=== PATIENT | male | born 1970 | race Two or more races ===

== ENCOUNTER 2018-12-20 06:31 | Day surgery (SDC) | payer OTHER ==
[~2018-12-20 06:31] MED LIST: CLONAZEPAM0.5 MG; FOCALIN XR30 MG PO
[2018-12-20] MEDS ORDERED: ZOFRAN4 MG PO (10:18)
[2018-12-20] MEDS ORDERED: TYLENOL EXTRA500 MG PO (10:18)
[2018-12-20] MEDS ORDERED: ULTRAM50 MG PO (10:18)
[2018-12-20] MEDS ORDERED: MIRALAX17 GM PO (10:18)
[2018-12-20] MEDS ORDERED: NEURONTIN300 MG PO (10:18)
== END 2018-12-20 17:15 | disposition home or self-care (01) ==
LOC: CIR.AMB 06:31
DX: K42.0 Umbilical hernia with obstruction, without gangrene (principal)

== ENCOUNTER → 2020-11-30 | Outpatient (CLI) | payer OTHER ==
[~2020-11-30] MED LIST changes: +ATIVAN2 M1; +CHILDREN'S ASPI81 MG; +CRESTOR20 MG; +ESTAZOLAM2 MG; +JANUMET 50-5001 EACH; +LAMICTAL25 MG; +MIRALAX17 GM PO; +NEURONTIN300 MG PO; +PAXIL20 MG; +TYLENOL EXTRA500 MG PO; +ULTRAM50 MG PO; +ZOFRAN4 MG PO
== END | disposition home or self-care (01) ==
LOC: SONOGRAMA 09:00
PROVIDERS: ATTEND Pathology Anatomic Pathology & Clinical Pathology
DX: E04.1 Nontoxic single thyroid nodule (principal)

== ENCOUNTER 2020-12-03 13:37 | Emergency (ER) | payer OTHER ==
[~2020-12-03] VITALS: Ht 177.8 cm; Wt 90.7 kg
[~2020-12-03 13:37] MED LIST changes: -ATIVAN2 M1; -CHILDREN'S ASPI81 MG; -CRESTOR20 MG; -ESTAZOLAM2 MG; -JANUMET 50-5001 EACH; -LAMICTAL25 MG; -PAXIL20 MG
[2020-12-03] MEDS ORDERED: PAXIL20 MG (13:57)
[2020-12-03] MEDS ORDERED: JANUMET 50-5001 EACH (13:57)
[2020-12-03] MEDS ORDERED: CHILDREN'S ASPI81 MG (13:59)
[2020-12-03] MEDS ORDERED: ESTAZOLAM2 MG (13:59)
[2020-12-03] MEDS ORDERED: CRESTOR20 MG (14:00)
[2020-12-03] MEDS ORDERED: ATIVAN2 M1 (14:00)
[2020-12-03] MEDS ORDERED: LAMICTAL25 MG (14:11)
== END 2020-12-03 19:17 | disposition home or self-care (01) ==
LOC: ER 13:37
DX: N20.1 Calculus of ureter (principal); R10.32 Left lower quadrant pain